=== PATIENT | male | born 1980 | race Caucasian/White ===

== ENCOUNTER 2017-02-26 17:12 | Emergency (ER) | payer MEDICAID ==
[~2017-02-26] VITALS: Ht 188 cm; Wt 90.7 kg
[2017-02-26 17:12] VITALS: BP_SYST 107
--- NOTE | 2017-02-26 17:12 | NUR ---
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
--- NOTE | 2017-02-26 17:46 | NUR ---
Dr. Little at bedside for evaluation
--- NOTE | 2017-02-26 17:47 | NUR ---
Pt c/o 2x2cm size scab to left lateral thigh. No drainage, no bleeding.
--- NOTE | 2017-02-26 17:49 | NUR ---
Pt requesting norco for pain to scab left leg. aware. Pt is in custody and orders recieved for ibuprofen.
--- NOTE | 2017-02-26 17:50 | NUR ---
Pt refused ibuprofen. States "Your a fucken bitch, whore, I told you I wouldn't take that shit". notified. No new orders recieved.
--- NOTE | 2017-02-26 17:56 | NUR ---
Patient given written and verbal discharge instructions and verbalizes understanding. ER MD discussed with patient the results and treatment provided. Patient in stable condition. ID arm band removed. Rx of clindamycin given. Patient educated on pain management and to follow up with PMD. Pain Scale 6/10, refused pain meds in ED. Opportunity for questions provided and answered. Medical clearance form given to [place].
[2017-02-26] MEDS ORDERED: IBUPROFEN 800 MG TABLET PO ONE (18:00)
== END 2017-02-26 17:58 ==
LOC: SED 17:12
DX: Z02.89 Encounter for other administrative examinations (principal); R21 Rash and other nonspecific skin eruption; Z86.14 Personal history of Methicillin resistant Staphylococcus aureus infection
CPT/HCPCS: 99283

== ENCOUNTER 2017-12-19 23:16 | Emergency (ER) | payer SELFPAY ==
[~2017-12-19] VITALS: Ht 188 cm; Wt 90.7 kg
[2017-12-19 23:30] VITALS: BP_SYST 141
[2017-12-20] MEDS ORDERED: LIDOCAINE 1% 10 MG/ML, 20 ML MDV IJ ONE
[2017-12-20 00:50] VITALS: BP_SYST 141
== END 2017-12-20 00:50 | disposition home or self-care (01) ==
LOC: SED 23:16
DX: L02.31 Cutaneous abscess of buttock (principal)
CPT/HCPCS: 10060; 99283; J2001